=== PATIENT | male | born 1970 | race Two or more races ===

== ENCOUNTER 2025-01-12 13:10 | Emergency (ER) | payer OTHER ==
[~2025-01-12] VITALS: Ht 170.2 cm; Wt 94.0 kg
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
[2025-01-12] MEDS: ACETAMINOPHEN 325 MG TAB PO ONE (13:30)
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
[2025-01-12 17:10] VITALS: BP 119/69; PULSE 77; RESP 16; TEMP 98.7; O2SAT 96
== END 2025-01-12 19:36 | disposition home or self-care (01) ==
LOC: ER 13:10 → EDBD 13:10 → ER 19:36
DX: S01.511A Laceration without foreign body of lip, initial encounter (principal); M79.644 Pain in right finger(s); M54.2 Cervicalgia; M54.9 Dorsalgia, unspecified; E11.9 Type 2 diabetes mellitus without complications; V89.2XXA Person injured in unspecified motor-vehicle accident, traffic, initial encounter; X58.XXXA Exposure to other specified factors, initial encounter; Y93.I9 Activity, other involving external motion; Y92.488 Other paved roadways as the place of occurrence of the external cause; Y99.8 Other external cause status
CPT/HCPCS: 71045; 72100; 73130